=== PATIENT | female | born 1960 | race Caucasian/White ===

== ENCOUNTER 2016-05-24 10:07 | Emergency (ER) | payer OTHER ==
[~2016-05-24] VITALS: Ht 157.5 cm; Wt 99.7 kg
[~2016-05-24 10:07] MED LIST: ACETAMINOPHEN-1 EAC1 PO; AMITRIPTYLINE H50 MG PO; ASPIR 8181 M1 PO; ASTELIN137 MCG/0.; AZELASTINE137 MCG/0. BOTH NARES; AZELASTINE137 MCG/0. NS; BENTYL10 MG PO; CLARITIN10 MG PO; DICYCLOMINE HCL10 MG PO; DITROPAN XL5 MG PO; DOCUSATE SODIU100 MG PO; ELAVIL10 MG PO; ELAVIL75 MG PO; ESTRADERM1 EAC1; ESTRADERM1 EAC1 TP; FIORICET 50-301 EACH PO; FLEXERIL10 MG PO; FLONASE16 G1 BOTH NARES; FUROSEMIDE20 MG PO; GUAIFENESIN WI120 ML PO; IMITREX100 MG; IMITREX100 MG PO; KEFLEX500 MG PO; LASIX20 MG; LEVOCETIRIZINE D5 MG PO; LEVOTHROID,S0.137 MG PO; LEVOXYL150 MCG PO; METOPROLOL TART25 MG PO; MINIVELLE1 EACH TD; MIRALAX255 GM PO; MOBIC7.5 MG PO; MONTELUKAST SOD10 MG PO; NABUMETONE750 M1 PO; NEXIUM40 MG PO; OXYBUTYNIN CHLOR5 MG PO; PERCOCET 5/31 TABLET PO; PREDNISONE20 MG PO; PROMETHAZINE HC25 M1 PO; PROVENTIL,2.5 MG/3 M IH; RANITIDINE HCL300 M1 PO; RELPAX40 MG PO; SERTRALINE HCL100 MG PO; SYMBICORT60 INHALAT IH; SYNTHROID125 MCG PO; SYNTHROID150 MCG PO; TESSALON PERLE100 MG PO; TESSALON200 MG PO; TRAMADOL HCL50 MG PO; ULTRAM50 MG; ULTRAM50 MG PO; VENTOLIN HFA18 GM IH; VITAMIN D-32000 UNI2 PO; ZITHROMAX250 MG PO; ZOFRAN ODT4 MG PO; [UNRECOGNIZED DRUG - OTHER] TD
[2016-05-24] MEDS ORDERED: PREDNISONE10 MG PO (12:19)
[2016-05-24] MEDS ORDERED: CHERATUSSIN AC473 ML PO (12:19)
[2016-05-24] MEDS ORDERED: DELTASONE20 M1 PO (12:20)
[2016-05-24 12:32] VITALS: BP 138/82
== END 2016-05-24 12:33 | disposition home or self-care (01) ==
LOC: EME 10:07
DX: J44.0 Chronic obstructive pulmonary disease with (acute) lower respiratory infection (principal); J20.9 Acute bronchitis, unspecified; J44.1 Chronic obstructive pulmonary disease with (acute) exacerbation; J45.909 Unspecified asthma, uncomplicated; I10 Essential (primary) hypertension; K21.9 Gastro-esophageal reflux disease without esophagitis; E05.90 Thyrotoxicosis, unspecified without thyrotoxic crisis or storm; G89.29 Other chronic pain
CPT/HCPCS: 71020; 93005; 94640; 99281; 99283

== ENCOUNTER 2016-12-05 13:18 | Observation (INO) | payer OTHER ==
[~2016-12-05] VITALS: Ht 157.5 cm; Wt 89.5 kg
[~2016-12-05 13:18] MED LIST changes: +CHERATUSSIN AC473 ML PO; +DELTASONE20 M1 PO; +ELAVIL25 MG PO; -ELAVIL75 MG PO; +PREDNISONE10 MG PO; -SYNTHROID125 MCG PO; +SYNTHROID200 MCG PO
[2016-12-05 14:34] LABS: HEMATOCRIT 34.6 % (36.0-46.0); MCH 28.1 PG (29.0-34.0); MCHC 32.9 G/DL (30.0-36.0); MCV 85.2 FL (83-99); PLATELET COUNT 175 K/uL (156-360); RBC DIS.WIDTH-CV 12.8 % (11.8-14.6); RBC DIS.WIDTH-SD 39.4 % (39-53); RED BLOOD COUNT 4.06 M/uL (3.80-5.20); WHITE BLOOD COUNT 5.3 K/uL (4.1-10.2)
[2016-12-05 14:42] LABS: CHLORIDE 105 mEq/L (99-109); POTASSIUM 3.9 mEq/L (3.7-5.4); SODIUM 139 mEq/L (136-147)
[2016-12-05 14:43] LABS: GLUCOSE 166 mg/dL (70-99)
[2016-12-05 14:45] LABS: ANION GAP 8 MEQ/L (2-14)
[2016-12-05 14:47] LABS: GFR ESTIMATE (CALCULATED) > 59 mL/min/
[2016-12-05 14:48] LABS: UREA NITROGEN (BUN) 13 mg/dL (9-23)
[2016-12-05 14:54] LABS: TROP-I INTERPRETATION NEGATIVE; TROPONIN-I < 0.01 ng/mL (0.0-0.30)
[2016-12-05 18:08] LABS: TROP-I INTERPRETATION NEGATIVE; TROPONIN-I < 0.01 ng/mL (0.0-0.30)
[2016-12-05] MEDS ORDERED: ESTRADIOL1 EAC8 TD (18:10)
[2016-12-05] MEDS ORDERED: OXYBUTYNIN CHLO15 MG PO (18:13)
[2016-12-05] MEDS ORDERED: GLUCOPHAGE500 MG PO (18:27)
[2016-12-05] MEDS ORDERED: LIPITOR20 MG PO (18:27)
[2016-12-05] MEDS ORDERED: IMITREX100 MG PO (18:29)
[2016-12-05] MEDS ORDERED: EXCEDRIN EXTRA1 EACH PO (18:31)
[2016-12-05 20:01] VITALS: BP 114/55
[2016-12-06 00:10] VITALS: BP 101/50
[2016-12-06 01:00] LABS: TROP-I INTERPRETATION NEGATIVE; TROPONIN-I < 0.01 ng/mL (0.0-0.30)
[2016-12-06 04:36] VITALS: BP 108/57
[2016-12-06 05:55] LABS: HEMATOCRIT 31.1 % (36.0-46.0); MCH 28.9 PG (29.0-34.0); MCHC 33.4 G/DL (30.0-36.0); MCV 86.4 FL (83-99); MEAN PLAT.VOLUME 9.3 uM^3 (9.5-12.4); PLATELET COUNT 175 K/uL (156-360); RBC DIS.WIDTH-SD 40.6 % (39-53); WHITE BLOOD COUNT 4.4 K/uL (4.1-10.2)
[2016-12-06 06:18] LABS: ANION GAP 8 MEQ/L (2-14); CHLORIDE 104 MEQ/L (99-109); GFR ESTIMATE (CALCULATED) > 59 mL/min/; GLUCOSE 143 mg/dL (70-99); POTASSIUM 3.9 MEQ/L (3.7-5.4); SAMPLE HEMOLYSIS CHECK 0; SAMPLE ICTERIC CHECK 0; SAMPLE LIPEMIA CHECK 0; SODIUM 139 MEQ/L (136-147); UREA NITROGEN (BUN) 17 mg/dL (9-23)
[2016-12-06 06:28] LABS: TROP-I INTERPRETATION NEGATIVE; TROPONIN-I < 0.01 ng/mL (0.0-0.30)
[2016-12-06 07:50] VITALS: BP 123/60
[2016-12-06 12:06] VITALS: BP 123/59
[2016-12-06 13:02] LABS: POINT-OF-CARE METER ID UU13113700
== END 2016-12-06 14:27 | disposition home or self-care (01) ==
LOC: EME 13:18 → EDOF 18:04 → ENRESERV 18:08 → 5WEST 19:41
PROVIDERS: Hospitalist; Physician Assistant
DX: R07.9 Chest pain, unspecified (principal); E11.9 Type 2 diabetes mellitus without complications; E78.5 Hyperlipidemia, unspecified; I10 Essential (primary) hypertension; J44.9 Chronic obstructive pulmonary disease, unspecified; R06.02 Shortness of breath; R42 Dizziness and giddiness; E03.9 Hypothyroidism, unspecified; K21.9 Gastro-esophageal reflux disease without esophagitis; Z82.49 Family history of ischemic heart disease and other diseases of the circulatory system; Z88.6 Allergy status to analgesic agent; E73.9 Lactose intolerance, unspecified; Z91.040 Latex allergy status
CPT/HCPCS: 71020; 80048; 82948; 84484; 85027; 93005; 94640; 99202; 99281; 99285; G0378; J1644

== ENCOUNTER → 2017-05-06 | Outpatient (CLI) | payer OTHER ==
[~2017-05-06] MED LIST changes: +ESTRADIOL1 EAC8 TD; +EXCEDRIN EXTRA1 EACH PO; +GLUCOPHAGE500 MG PO; +LIPITOR20 MG PO; +OXYBUTYNIN CHLO15 MG PO
== END | disposition home or self-care (01) ==
DX: R13.10 Dysphagia, unspecified (principal); K21.9 Gastro-esophageal reflux disease without esophagitis
CPT/HCPCS: 92611 GN; G8996 GN; G8997 GN; G8998 GN

== ENCOUNTER 2017-07-06 11:32 | Emergency (ER) | payer OTHER ==
[~2017-07-06] VITALS: Ht 157.5 cm; Wt 79.2 kg
[2017-07-06 12:54] LABS: HEMATOCRIT 31.4 % (36.0-46.0); HEMOGLOBIN 10.8 G/DL (11.9-15.5); MCH 29.7 PG (29.0-34.0); MCHC 34.4 G/DL (30.0-36.0); MCV 86.3 FL (83-99); RBC DIS.WIDTH-CV 13.9 % (11.8-14.6); RBC DIS.WIDTH-SD 43.6 % (39-53); RED BLOOD COUNT 3.64 M/uL (3.80-5.20); WHITE BLOOD COUNT 2.6 K/uL (4.1-10.2)
[2017-07-06 12:56] LABS: PLATELET COUNT 106 K/uL (156-360)
[2017-07-06 13:07] LABS: CHLORIDE 107 mEq/L (99-109); POTASSIUM 3.8 mEq/L (3.7-5.4); SODIUM 143 mEq/L (136-147)
[2017-07-06 13:08] LABS: GLUCOSE 153 mg/dL (70-99)
[2017-07-06 13:12] LABS: CREATININE 0.9 mg/dL (0.6-1.3); GFR ESTIMATE (CALCULATED) > 59 mL/min/
[2017-07-06 13:13] LABS: UREA NITROGEN (BUN) 9 mg/dL (9-23)
[2017-07-06 13:14] LABS: TROP-I INTERPRETATION NEGATIVE; TROPONIN-I < 0.01 ng/mL (0.0-0.30)
[2017-07-06 15:13] LABS: D-DIMER ELISA < 150.00 ng/mLDDU (<230)
[2017-07-06] MEDS ORDERED: TESSALON PERLE100 MG PO (15:53)
[2017-07-06 16:10] VITALS: BP 137/71
== END 2017-07-06 16:11 | disposition home or self-care (01) ==
LOC: EME 11:32
PROVIDERS: Nurse Practitioner Family
DX: J10.1 Influenza due to other identified influenza virus with other respiratory manifestations (principal); J44.9 Chronic obstructive pulmonary disease, unspecified; I50.9 Heart failure, unspecified; R94.31 Abnormal electrocardiogram [ECG] [EKG]; I10 Essential (primary) hypertension; E05.90 Thyrotoxicosis, unspecified without thyrotoxic crisis or storm; K21.9 Gastro-esophageal reflux disease without esophagitis; R56.9 Unspecified convulsions; G43.909 Migraine, unspecified, not intractable, without status migrainosus; F32.9 Major depressive disorder, single episode, unspecified; E73.9 Lactose intolerance, unspecified; Z79.84 Long term (current) use of oral hypoglycemic drugs; Z79.51 Long term (current) use of inhaled steroids; Z87.442 Personal history of urinary calculi; Z90.49 Acquired absence of other specified parts of digestive tract; Z90.710 Acquired absence of both cervix and uterus; Z91.040 Latex allergy status; Z88.6 Allergy status to analgesic agent
CPT/HCPCS: 71046; 80048; 84484; 85027; 85379; 87502; 93005; 94640; 99281; 99284